=== PATIENT | female | born 1970 | race American Indian/Alaskan Native ===

== ENCOUNTER 2017-11-04 21:21 | Inpatient (IN) | payer OTHER, SELFPAY ==
[2017-11-04 21:35] VITALS: BP 128/61; PULSE 113; RESP 22; TEMP 37.7; O2SAT 95; BMI 25.2
--- NOTE | 2017-11-04 21:41 | PC.NURSE ---
ADMISSION Received pt at approximately 2109 via ambulance transfer from [facility]. Per report from [facility] RN, pt with MRSA to L knee and had I&D done prior to transfer, which yielded about 20ml of purulent drainage. L knee with gauze wrap dressing intact, moderate amount of serosangiunous drainage noted, per ambulance report, looped nargis drain underneath dressing although has not been visualized. 3+ edema and redness noted to L knee area. pt able to transfer from stretcher to bed with minimal assist. denies pain at rest, states pain only when walking. Dr. Dee notified pt on unit. Pt oriented to room, call light within reach.
[2017-11-04] MEDS: DEXTROSE 5%-0.45% NS 1,000 ML 100 ML IV (22:51)
--- NOTE | 2017-11-04 23:01 | PM.HP.1 ---
History of Present Illness Date Patient Seen: 11/04/17 Chief complaint: LLE ABSCESS Narrative: Patient fell about one week ago. Two days ago she developed a scratch on the anterior knee. She reports over the last two days her knee became very swollen, painful, firm, warm, and tender. She had no fever but reported chills. She was evaluated at the [facility] ED where she underwent and I/D of the knee and started Vancomycin for cellulitis. As they did not have any inpatient beds she was transferred to [facility] for admission. Patient History Medical History Breast lump in female (Acute) Eye abnormalities (Acute) Hepatic cirrhosis (Acute) Hepatitis C (Acute) History of alcohol abuse (Acute) Smoker (Acute) Surgical History History of tubal ligation (Acute) Family & Social History Family History: Reviewed 11/04/17 by Brittani Dee MD Social History: household members none Prior Living Arrangements RV Safety & Behavioral: Feels Safe in Current Yes Environment Been Physically Hurt or No Threatened By a Person Suicidal Ideation Description None Tobacco & Substance use: Tobacco type cigarettes Smoking Status Current every day smoker alcohol intake current alcohol intake frequency a few times a week Substance Use Type marijuana Meds Home Medications Medication Instructions Recorded Confirmed Type Multi-Vitamins with Iron 1 tab PO DAILY 11/04/17 11/04/17 History Vitamin D3 1 tab PO DAILY 11/04/17 11/04/17 History jaquhhk-bbcgsiuipgkhv-jsvseutj 2 tab PO Q6H PRN 11/04/17 11/04/17 History [Excedrin Extra Strength] Allergies Allergy/AdvReac Type Severity Reaction Status Date / Time oxycodone Allergy Rash Verified 11/04/17 22:51 Review of Systems Review of Systems All systems reviewed & are unremarkable except as noted in HPI and below Exam Narrative Exam Narrative: HEENT: NC/ AT, EOMI, Oropharyx clear Neck supple Lungs: clear to auscultation CV: RRR nl S1S2 ABd: soft/ nontender non distendend EXT: Left Leg: knee oozing with serosanguinous fluid Left Leg swollen, warm, red, and firm from ankle to upper inner thigh Neuro: non focal Objective Labs Result Diagrams: 09/12/18 22:50 Labs: WBC 25.7 h?h 15.3/44/4 Na- 133 Pot 3.8 chloride 95, CO2 26 BUn11 Creat 0.8 Lactic Acid 1.2 Assessment & Plan (1) Sepsis affecting skin: Problem details: Patient will continue IV hydration and antibiotics. Her initial lactate was 1.2 will repeat Current visit: Yes Status: Acute (2) Cellulitis: Problem details: Will start Ceftriaxone and Vancomycin pending the results of culture Current visit: Yes Status: Acute (3) Abscess: Problem details: will follow, she may need surgical consultation given the extent of the abscess and cellulitis Current visit: Yes Status: Acute (4) Hepatitis C: Problem details: chronic Current visit: Yes Status: Acute Quality VTE Deep Vein Thrombosis/Pulmonary Embolism Present on Admission: No
[2017-11-04 23:11] LABS: BUN Creatinine Ratio 16.7 (6-22); Blood Urea Nitrogen 10 mg/dL (7-17); Estimated Glomerular Filt Rate > 60.0 mL/min (>60); Lactate (Lactic Acid) 0.8 mmol/L (0.7-2.1)
[2017-11-05] VITALS (9 sets, daily range): BP systolic 90–153; BP diastolic 56–68; PULSE 71–102; RESP 16–19; TEMP 36.2–37.4; O2SAT 97–100
--- NOTE | 2017-11-05 | DI.MRI.S_ITS ---
PROCEDURE: MR KNEE LT WO/W CON INDICATIONS: Left knee pain, swelling, abcess TECHNIQUE: Noncontrast sagittal PD fast spin echo and T2 fast spin echo with fat saturation, sagittal 3-D FLASH with fat saturation; coronal T1 spin echo and PD fast spin echo with fat saturation, and axial T1 spin echo and PD fast spin echo with fat saturation through the knee. Post-contrast axial, coronal, and sagittal T1 spin echo with fat saturation through the knee. COMPARISON: None. FINDINGS: Image quality: There are motion artifacts. Bones: No fracture or dislocation. There is marrow edema in patella, likely secondary to bone contusion. Bone contusion is also noted in the lateral tibial plateau. Soft tissue: Anterior soft tissue edema, skin thickening and increased enhancement are consistent with cellulitis. There is an open wound with a surgical drain superficial to patella. In the infrapatellar area, there is a fluid collection 1.4 cm AP, 4.5 cm transverse and 5.6 cm longitudinal, which demonstrates subtle peripheral enhancement suspicious for an abscess. Menisci: There is complex tear of the lateral medial meniscus. A horizontal tear is present in the posterior horn the medial meniscus. Cruciate ligaments: The anterior and posterior cruciate ligaments are suboptimally visualized but appear intact. Medial structures: The medial collateral ligament appears intact. No abnormal bursal fluid. Lateral structures: The lateral collateral ligament, the biceps femoris tendon and the iliotibial band appear intact. The popliteus tendon appears normal. Anterior structures: The quadriceps and patellar tendons appear intact. Patellar alignment is normal. No femoral trochlear dysplasia or ventral trochlear prominence. No edema in the infrapatellar fat pad. Joint space: There is small knee joint fluid. No Trevino's cyst. Moderate tricompartmental degenerative joint disease is present with articular cartilage thinning and fibrillation, most pronounced in the medial femorotibial compartment. Suspect small intra-articular bodies posterior to the knee. IMPRESSION: 1. Open wound in anterior soft tissue superficial to patella with a surgical drain. A 1.4 x 4.5 x 5.6 cm fluid collection demonstrates peripheral enhancement in the infrapatellar region consistent with abscess. The abscess is inferior to the surgical drain. 2. There is skin thickening, soft tissue edema and abnormal enhancement consistent with cellulitis. 3. Complex tear of the lateral meniscus. 4. Horizontal tear of the posterior horn of the medial meniscus. 5. Moderate tricompartmental degenerative joint disease. Small intra-articular bodies are noted in posterior knee joint. 5. There is mild bone contusion in patella and the lateral tibial plateau. No displaced fractures. 6. Small knee joint effusion. The result was discussed with Dr. Wallis on 11/05/2017 at 1703 hrs. Dictated by: Becky Turner M.D. on 11/05/2017 at 17:30 Transcribed by: KAYLAN on 11/05/2017 at 19:05 Approved by: Becky Turner M.D. on 11/06/2017 at 9:58
[2017-11-05] MEDS: CEFTRIAXONE 2 GM/50 ML FROZ.PIGGY IV ×2 (00:02→21:37)
[2017-11-05] MEDS: HYDROCODONE/ACET 5/325 TABLET 1 TAB PO ×3 (00:06→14:25)
[2017-11-05] MEDS: VANCOMYCIN 1,000 MG/200 ML FROZ.PIGGY 125 MG IV (00:46)
--- NOTE | 2017-11-05 03:22 | PC.NURSE ---
Addendum entered by Mandy Hager R.N. 11/05/17 05:48: Up to bathroom earlier with 1 assist and holding onto IV pole due to weakness in left leg. Denied further pain at that time. BP remains low at 90/42; will continue to monitor. Is now afebrile and HR down to 92 bpm. Patient currently asleep. Original Note: Patient is alert and oriented. Voice is coarse and speech is garbled and difficult to understand at times. Breath sounds diminished but CTA with RA sat of 97%. HRR but tachy at 102 and BP low at 94/63. Denies nausea. BT present and abdomen is soft. Denies dysuria, frequency, urgency or incontinence. Up to bathroom with 1 assist and holds onto IV pole as is weaker in left leg. Left leg is red, warm and swollen from upper thigh to ankle. Knee dressing is intact with serosanguinous drainage noted. Is on contact isolation for potential MRSA infection. Independent with bed mobility. Earlier received Vicodin for complaint of leg pain and now states she is having no pain. Fall risk is high as had recent fall; bed alarm is activated.
[2017-11-05 06:23] LABS: Add Manual Diff / Slide Review NO; Basophils Percent Auto 0.4 % (0-2); Eosinophils Percent Auto 0.6 % (2-4); Hematocrit 35.7 % (36-46); Hemoglobin 11.9 g/dL (12.0-16.0); Lymphocytes Percent Auto 12.3 % (25-40); Mean Corpuscular HGB Conc 33.4 % (30-36); Mean Corpuscular Hemoglobin 29.5 PG (26-34); Mean Corpuscular Volume 88.3 fL (80-100); Monocytes Percent Auto 12.4 % (3-14); Neutrophils Absolute Auto 12400 /uL (3000-5900); Neutrophils Percent Auto 74.3 % (50-75); Platelet Count 221 X10^3/uL (150-400); Red Blood Cell Count 4.04 X10^6/uL (4.0-5.2); Red Cell Distribution Width 14.4 % (11.6-14.8); White Blood Cell Count 16.7 X10^3/uL (4.5-11.0)
[2017-11-05 06:32] LABS: Alanine Aminotransferase 17 IU/L (9-52); Albumin 3.2 g/dL (3.5-5.0); Alkaline Phosphatase 83 U/L (38-126); Aspartate Aminotransferase 16 IU/L (14-36); BUN Creatinine Ratio 16.7 (6-22); Bilirubin Total 0.8 mg/dL (0.2-1.3); Blood Urea Nitrogen 10 mg/dL (7-17); Calcium 8.3 mg/dL (8.4-10.2); Carbon Dioxide 29 mmol/L (22-32); Chloride 105 mmol/L (98-107); Estimated Glomerular Filt Rate > 60.0 mL/min (>60); Globulin 3.3 g/dL (1.7-4.1); Glucose 112 mg/dL (70-100); HEMOLYSIS < 15 (0-50); Potassium 3.7 mmol/L (3.4-5.1); Sodium 139 mmol/L (137-145); Total Protein 6.5 g/dL (6.3-8.2)
[2017-11-05] MEDS: DOCUSATE 100 MG CAPSULE PO ×2 (09:26→21:37)
[2017-11-05] MEDS: ENOXAPARIN 40 MG/0.4 ML SYRINGE SUBCUT (09:26)
[2017-11-05] MEDS: VANCOMYCIN 1,250 MG in SODIUM CHLORIDE 0.9% 250 ML IV ×2 (10:30→17:05)
[2017-11-05] MEDS: DEXTROSE 5%-0.45% NS 1,000 ML 100 ML IV (10:30)
--- NOTE | 2017-11-05 12:34 | PC.NURSE ---
Addendum entered by Ashley Craig R.N. 11/05/17 15:47: Pt tearful in early afternoon, pt's mother in to visit, pt teary, ambulated in halls following her mother to the elevator, stating she wanted to go home per TAPPER HELPER report. Unwitnessed by life insurance underwriter. Pt able to be re-directed back to her room, settled into chair at bedside. Arcade Games Mechanic spoke with Dr. Dee at 1330 re plan of care. Left knee dressing taken down at 1330, Dr. Dee in room to observe. left knee incisions X2 cleansed with NS where nargis drain intact. Incisions oozing sero-sang fluid. Surrounding area edematous, red, warm. Covered with wet 4X4 gauze and abd pad X2, secured with kerlix. Wet to dry dressing verbal order by Dr. Dee, pt tolerated fair-well. At 1430, pt NPO, ativan 1mg given for anxiety. Dr. Damian consulted by Dr. Dee. Awaiting left knee MRI time frame today, screening form done. Original Note: Day Shift-Pt's mother Lisha visiting pt in room at 1230, contact isolation precautions explained, compliant with wearing gowns, gloves, hand hygiene. Pt reported 6-7/10 LLE aching, [place] 1 tab prn given at 0925, upon reassessment, pt asleep. IVF infusing well to left AC PIV. Vanco infusion held this AM awaiting vanco trough. Spoke with lab at 1005, confirming lab draw for vanco through, none ordered for today, therefore spoke with pharmacy at 1010, no trough as ordered on APR for today, this will be done tomorrow 11/06. Vanco then infused per APR. LLE red, warm, edematous. Area previously marked with black marker. LLE knee dressing has serous fluid drainage. Awaiting Dr. Dee's assessment to take down dressing and change. Pt aware.
--- NOTE | 2017-11-05 13:49 | PM.PN.1 ---
Subjective Date Patient Seen: 11/05/17 Interval history: Patient is tearful and wants to go out to smoke. Her pain control appears adequate Her left leg is slightly improved with less warmth, firmness, and redness Exam Vital Signs (past 8 hours): - 11/05/17 07:20 11/05/17 09:20 11/05/17 12:00 Temperature 98.7 F 98.1 F Pulse Rate 84 71 Respiratory Rate 17 16 Blood Pressure 107/56 L 124/63 Pulse Oximetry 99 98 100 Oxygen Delivery Method Room Air Oxygen Flow Rate 0 Narrative Exam Narrative: tearful Lungs: clear to auscultation CV: RRR nl Sl S2 Abd: soft/ non tender Ext: Left knee with drains in place, red, tender, firm Cellulitis extending from inner thigh to ankle, improved since last night left leg with 2-3+ edema Objective Labs Result Diagrams: 11/05/17 06:00 11/05/17 06:00 Labs: Laboratory Results - last 24 hr 11/04/17 11/04/17 11/05/17 22:50 22:50 06:00 WBC 16.7 H RBC 4.04 Hgb 11.9 L Hct 35.7 L MCV 88.3 MCH 29.5 MCHC 33.4 RDW 14.4 Plt Count 221 Neut % (Auto) 74.3 Lymph % (Auto) 12.3 L [place] % (Auto) 12.4 Eos % (Auto) 0.6 L Baso % (Auto) 0.4 Neut # (Auto) 61301 H Sodium Potassium Chloride Carbon Dioxide BUN 10 Creatinine 0.60 Estimated GFR > 60.0 BUN/Creatinine Ratio 16.7 Glucose Lactate 0.8 Calcium Total Bilirubin AST ALT Alkaline Phosphatase Total Protein Albumin Globulin Albumin/Globulin Ratio 11/05/17 06:00 WBC RBC Hgb Hct MCV MCH MCHC RDW Plt Count Neut % (Auto) Lymph % (Auto) [place] % (Auto) Eos % (Auto) Baso % (Auto) Neut # (Auto) Sodium 139 Potassium 3.7 Chloride 105 Carbon Dioxide 29 BUN 10 Creatinine 0.60 Estimated GFR > 60.0 BUN/Creatinine Ratio 16.7 Glucose 112 H Lactate Calcium 8.3 L Total Bilirubin 0.8 AST 16 ALT 17 Alkaline Phosphatase 83 Total Protein 6.5 Albumin 3.2 L Globulin 3.3 Albumin/Globulin Ratio 1.0 Assessment & Plan (1) Sepsis affecting skin: Problem details: Continue Ceftriaxone and Vancomycin Awaiting culture results Current visit: Yes Status: Acute (2) Cellulitis: Problem details: Will start Ceftriaxone and Vancomycin pending the results of culture Current visit: Yes Status: Acute (3) Abscess: Problem details: will follow, The wound is very concerning, Ortho consultation to determine if definitive surgical debridement indicated MRI to evaluate further Current visit: Yes Status: Acute (4) Hepatitis C: Problem details: chronic Current visit: Yes Status: Acute (5) Nicotine dependence with withdrawal: Problem details: She is tearful but refuses nicotine patch. She wants to go outside to smoke Will give her Ativan prn Current visit: Yes Status: Acute Plan: Assessment/Plan Narrative: NPO, MRI of Left Knee Quality VTE Deep Vein Thrombosis/Pulmonary Embolism Present on Admission: No
[2017-11-05] MEDS: LORazepam 2 MG/ML SYRINGE 1 MG IV ×2 (14:25→15:53)
--- NOTE | 2017-11-05 14:47 | CM.IDA ---
Addendum entered by HAIM Hendrix 11/06/17 15:29: To OR for I+D at 1450, see nursing notes; Pt continues to be emotionally labile and anxious, ativan seems to assist, per notes. Will attempt deeper conversation tomorrow if pt remains here. Original Note: DCP Assessment Note: Pt is a 47 yo female, resident of [place]. Pt is admitted for LLE abscess, cellulitis, and sepsis. PCP unknown. Insurance is Medicaid. Attempted assessment w/pt this morning at bedside, she said her phone was about to , she didn't have a manager pharmacy, and she wanted to finish texting her family. Attempted again this afternoon, spoke w/KAUSHIK Rea before entering room. Fouzia explained that pt was very tearful and anxious this afternoon, asking to leave to smoke, ativan had been ordered to assist. Fouzia states there is h/o drug use. Pt was visited by her mom today and this visit did not go well. MRI ordered and possible I+D. Pt remains anxious and teary right now, will hold DCP assessment at this time but following very closely. HAIM Hendrix Discharge Planning/Care Management CM Discharge Assessment Start: 11/05/17 14:43 Freq: Status: Active Protocol: Document 11/05/17 14:43 KIM (Rec: 11/05/17 14:47 KIM [id number]) Discharge Planning Assessment Assigned Treasury Analyst HAIM Santiago DPOA/Assigned Designee Name Sangeeta Mckeon mother Contact Information [phone], cell Advance Directives? No History Provided By Medical Record Prior Living Arrangements RV Household Members none Type of transporation used prior to Drives own vehicle admit Independent with ADL's Yes Is patient alert and oriented? Yes Comment Unknown until further assessment and clarification of POC Discharge Plan Home Transportation Arrangement Unknown at this time Additional Comment Pending POC/DCP options Whiteboard Updated in Patient Room with Yes name and ext. # of Treasury Analyst Review Status In Process
[2017-11-05] MEDS: NICOTINE 21 MG PATCH TOP (15:53)
[2017-11-05] MEDS: HYDROCODONE/ACET 5/325 TABLET 2 TAB PO (21:37)
[2017-11-06] VITALS (18 sets, daily range): BP systolic 93–134; BP diastolic 48–88; PULSE 77–96; RESP 16–25; TEMP 36.2–37.4; O2SAT 93–99; BMI 25.4
--- NOTE | 2017-11-06 00:02 | PC.NURSE ---
SHIFT NOTE Pt completed LLE MRI this shift. while pt off unit, received call from Dr. Damian stating pt will most likely have wash out done tomorrow at 1430 and pt to be NPO at midnoc tonight. pt updated when returing to unit after MRI and verbalized understanding. pt states pain to LLE rated 6/10 and states 1 tab norco ineffective, received order to increased to 2 tabs Q4H which pt verbally agreeable to. L knee dressing CDI, per previous shift RN, nargis drain intact underneath dressing. pt able to ambulate with 1P min assist. contact precautions maintained. bed alarm for safety. call light within reach.
[2017-11-06] MEDS: VANCOMYCIN 1,250 MG in SODIUM CHLORIDE 0.9% 250 ML IV ×3 (00:09→18:21)
[2017-11-06] MEDS: HYDROMORPHONE 1 MG INJ IV ×2 (00:14→08:29)
--- NOTE | 2017-11-06 00:28 | PC.NURSE ---
Addendum entered by Mandy Hager R.N. 11/06/17 06:48: Becoming increasingly agitated as not wanting to adhere to hospital policy that an alarm be used since she is a high fall risk. States other staff have not made her use the alarm and she is not going to stay. Now claims she didn't fall although has stated prior that she had fall in past 2 weeks. child care coordinator, Talisha, informed who will talk with patient. Currently ambulating in [place] with staff assist. Original Note: Patient is alert and oriented although speech is somewhat garbled sounding making it sometimes difficult to understand. Breath sounds diminished but CTA with RA sat of 98%. HRR. Denies nausea. BT present and abdomen is soft. Denies dysuria, frequency, urgency or incontinence. Independent with bed mobility. Left LE remains swollen, red and warm with redness extending further up thigh past previously drawn markings. Dressing around knee is CDI. Complains of 7/10 pain so medicated with IV Dilaudid as is currently NPO for procedure later today. Is assisted to bathroom with 1 person and holds onto IV pole due to weakness in left LE. Fall risk score is high and bed alarm activated.
[2017-11-06] MEDS: DEXTROSE 5%-0.45% NS 1,000 ML 100 ML IV ×2 (02:09→14:01)
[2017-11-06 06:45] LABS: Hematocrit 34.9 % (36-46); Hemoglobin 11.6 g/dL (12.0-16.0); Mean Corpuscular HGB Conc 33.3 % (30-36); Mean Corpuscular Hemoglobin 29.6 PG (26-34); Mean Corpuscular Volume 88.8 fL (80-100); Platelet Count 236 X10^3/uL (150-400); Red Blood Cell Count 3.93 X10^6/uL (4.0-5.2); Red Cell Distribution Width 14.1 % (11.6-14.8); White Blood Cell Count 9.9 X10^3/uL (4.5-11.0)
[2017-11-06 07:51] LABS: Neutrophils Absolute Manual 7029 /uL (3000-5900); RBC Morphology Normal Morphology; Total Cells Counted 100
[2017-11-06] MEDS: NICOTINE 21 MG PATCH TOP (08:28)
[2017-11-06 08:29] LABS: Vancomycin Trough 11.6 ug/mL (10-20)
--- NOTE | 2017-11-06 10:58 | PC.NURSE ---
Addendum entered by Ashley Craig R.N. 11/06/17 15:04: Pt to OR at 1450 via bed, unwitnessed by music writer. Original Note: Addendum entered by Ashley Craig R.N. 11/06/17 12:20: Pt out of BR, washed hair, settled into chair at bedside. Pt anxious, requested prn med. Ativan was going to be given and while in pt's room, music writer was putting chair alarm on pt and explained that this was being done. Pt moved her arm away, stated no we're not doing that. Pt became very teary, emotional stating she was going to call her mom to pick her up and needing to get out of here. Balance Wheel Screw Hole Tapper explained the need for chair/bed alarms for hospital policy for high risk pt's. Pt states she's always been indep and doesn't want to be tied down like a dog on a leash. Explained risks of future falls, injury, longer hospital stay. Pt continued to refuse. At 1210, manager shift aware and community relations representative aware of high fall risk alarm. Pt agreed to keep room door open at all times, wants to ambulate around room and music writer observed pt to do so with IV pole. Conclusion, pt refused chair and bed alarm. Original Note: Day Shift- Pt expresses opinion on the need for high risk fall precautions using the bed alarm. Stating one fall in 10 years makes me a fall risk, I ride my bike everywhere. Balance Wheel Screw Hole Tapper explained the need for bed alarm precautions and bed alarm on. Thus far compliant. Pt's other complaint is hunger and thirst, states being NPO for too long, possible surgery at [address] Damian. Explained the risk of aspiration and delayed surgery if pt eats/drinks. Dilaudid IV prn given at 0830 for 7/10 pain to left knee. Upon reassessment, not much change. Vanco trough drawn later in morning for pt. Called pharmacy at 0945 as vanco med not available on unit, pharmacy stated they will tube to unit. Left knee dressing CDI. IVF infusing well to left AC PIV. Call light within reach.
[2017-11-06] MEDS: LORazepam 2 MG/ML SYRINGE 1 MG IV ×2 (11:59→22:24)
[2017-11-06] MEDS: LACTATED RINGERS 1,000 ML 42 ML IV (15:08)
--- NOTE | 2017-11-06 15:34 | P.PN_ITS ---
Subjective Date Patient Seen: 11/06/17 Interval history: Patient reports she continues to have significant pain. Her left leg is still swollen but has less redness and warmth. Patient is scheduled for I/D in the OR today Exam Vital Signs (past 8 hours): - 11/06/17 08:00 11/06/17 08:30 11/06/17 12:23 Temperature 97.4 F L 98.3 F Pulse Rate 93 H 89 Respiratory Rate 18 18 Blood Pressure 99/48 L 112/78 Pulse Oximetry 93 94 99 11/06/17 15:09 Temperature 99.3 F Pulse Rate 89 Respiratory Rate 16 Blood Pressure 108/69 Pulse Oximetry 98 Oxygen Delivery Method Room Air Oxygen Flow Rate 0 Narrative Exam Narrative: Lungs: Clear to auscultation CV: RRR nl Sl S2 Abd: Soft/ non tender non distended Ext: Left Leg with erythema involving thigh down to ankle Left leg is swollen, tender 2 nargis drains placed in Knee Dressing is dry Objective Labs Result Diagrams: 11/06/17 06:26 11/05/17 06:00 Labs: Laboratory Results - last 24 hr MRI- Abcess involving the anterior patella, fluid, drains in place Cultures from [facility] growing gram positive cocci in clusters 11/06/17 11/06/17 06:26 07:45 WBC 9.9 RBC 3.93 L Hgb 11.6 L Hct 34.9 L MCV 88.8 MCH 29.6 MCHC 33.3 RDW 14.1 Plt Count 236 Total Counted 100 Seg Neutrophils % 71.0 H Lymphocytes % (Manual) 17.0 L Atypical Lymphs % 2.0 H Monocytes % (Manual) 10.0 Neutrophils # (Manual) 7029 H RBC Morphology Normal morphology Vancomycin Trough 11.6 Assessment & Plan (1) Nicotine dependence with withdrawal: Problem details: She is tearful but refuses nicotine patch. She wants to go outside to smoke Will give her Ativan prn Patient agreed to Nicotine patch Current visit: Yes Status: Acute (2) Hepatitis C: Problem details: chronic Current visit: Yes Status: Acute (3) Abscess: Problem details: will follow, The wound is very concerning, Ortho consultation to determine if definitive surgical debridement indicated MRI to evaluate further patient to have definitive extensive debridement in the OR today Current visit: Yes Status: Acute (4) Cellulitis: Problem details: Will start Ceftriaxone and Vancomycin pending the results of culture Cultures growing gram positive cocci. Will check with Jonel Perez again for Culture and Sensitivity results Current visit: Yes Status: Acute (5) Sepsis affecting skin: Problem details: Continue Ceftriaxone and Vancomycin Awaiting culture results Current visit: Yes Status: Acute Quality VTE Deep Vein Thrombosis/Pulmonary Embolism Present on Admission: No
--- NOTE | 2017-11-06 15:38 | PM.CN ---
History of Present Illness Date Patient Seen: 11/05/17 Time Patient Seen: 17:39 Chief complaint: LLE ABSCESS Reason for consult: left leg infection Requesting provider: Gabriella Giron Narrative: Ms. Frances is a 47 yo F with history of a cut on her left anterior knee approximately 10 days ago. The wound closed up. Over the last 2 days patient has been having increased swelling pain and redness to her left knee and the entire leg. Patient was seen by [facility] emergency room physician. Patient underwent a incision and drainage in the emergency room and then was transferred to [facility] for definitive care. Patient was seen and examined MRI was ordered. Patient was found have a large abscess in the soft tissue of her left leg. Patient was scheduled for incision and drainage irrigation debridement of her left leg. [facility] Medical History Breast lump in female (Acute) Eye abnormalities (Acute) Hepatic cirrhosis (Acute) Hepatitis C (Acute) History of alcohol abuse (Acute) Smoker (Acute) Surgical History History of tubal ligation (Acute) Social History household members: none Smoking Status: Current every day smoker alcohol intake: current Meds Home Medications Medication Instructions Recorded Confirmed Type Multi-Vitamins with Iron 1 tab PO DAILY 11/04/17 11/04/17 History Vitamin D3 1 tab PO DAILY 11/04/17 11/04/17 History rcdfroc-meuwrnmrvrdku-ikyvjyfo 2 tab PO Q6H PRN 11/04/17 11/04/17 History [Excedrin Extra Strength] Allergies Allergy/AdvReac Type Severity Reaction Status Date / Time oxycodone Allergy Rash Verified 11/04/17 22:51 Review of Systems Review of Systems All systems reviewed & are unremarkable except as noted in HPI and below Exam Vital Signs (past 8 hours): - 11/06/17 08:00 11/06/17 08:30 11/06/17 12:23 Temperature 97.4 F L 98.3 F Pulse Rate 93 H 89 Respiratory Rate 18 18 Blood Pressure 99/48 L 112/78 Pulse Oximetry 93 94 99 11/06/17 15:09 Temperature 99.3 F Pulse Rate 89 Respiratory Rate 16 Blood Pressure 108/69 Pulse Oximetry 98 Oxygen Delivery Method Room Air Oxygen Flow Rate 0 Objective Labs Result Diagrams: 11/06/17 06:26 11/05/17 06:00 Labs: Laboratory Results - last 24 hr 11/06/17 11/06/17 06:26 07:45 WBC 9.9 RBC 3.93 L Hgb 11.6 L Hct 34.9 L MCV 88.8 MCH 29.6 MCHC 33.3 RDW 14.1 Plt Count 236 Total Counted 100 Seg Neutrophils % 71.0 H Lymphocytes % (Manual) 17.0 L Atypical Lymphs % 2.0 H Monocytes % (Manual) 10.0 Neutrophils # (Manual) 7029 H RBC Morphology Normal morphology Vancomycin Trough 11.6 Assessment & Plan Plan: Assessment/Plan Narrative: 47 yo F with left leg infection from a laceration with MRI showing large abscess in the soft tissue. After discussing risks and benefits of treatment options, patient will be scheduled for left knee I&D urgently.
--- NOTE | 2017-11-06 15:41 | P.CONS_ITS ---
History of Present Illness Date Patient Seen: 11/05/17 Time Patient Seen: 17:39 Chief complaint: LLE ABSCESS Reason for consult: left leg infection Requesting provider: Gabriella Giron Narrative: Ms. Frances is a 47 yo F with history of a cut on her left anterior knee approximately 10 days ago. The wound closed up. Over the last 2 days patient has been having increased swelling pain and redness to her left knee and the entire leg. Patient was seen by [facility] emergency room physician. Patient underwent a incision and drainage in the emergency room and then was transferred to [facility] for definitive care. Patient was seen and examined MRI was ordered. Patient was found have a large abscess in the soft tissue of her left leg. Patient was scheduled for incision and drainage irrigation debridement of her left leg. [facility]LY [facility] Medical History Breast lump in female (Acute) Eye abnormalities (Acute) Hepatic cirrhosis (Acute) Hepatitis C (Acute) History of alcohol abuse (Acute) Smoker (Acute) Surgical History History of tubal ligation (Acute) Social History household members: none Smoking Status: Current every day smoker alcohol intake: current Meds Home Medications Medication Instructions Recorded Confirmed Type Multi-Vitamins with Iron 1 tab PO DAILY 11/04/17 11/04/17 History Vitamin D3 1 tab PO DAILY 11/04/17 11/04/17 History khuiozy-eakemhvwelnlj-hnsmozny 2 tab PO Q6H PRN 11/04/17 11/04/17 History [Excedrin Extra Strength] Allergies Allergy/AdvReac Type Severity Reaction Status Date / Time oxycodone Allergy Rash Verified 11/04/17 22:51 Review of Systems Review of Systems All systems reviewed & are unremarkable except as noted in HPI and below Exam Vital Signs (past 8 hours): - 11/06/17 08:00 11/06/17 08:30 11/06/17 12:23 Temperature 97.4 F L 98.3 F Pulse Rate 93 H 89 Respiratory Rate 18 18 Blood Pressure 99/48 L 112/78 Pulse Oximetry 93 94 99 11/06/17 15:09 Temperature 99.3 F Pulse Rate 89 Respiratory Rate 16 Blood Pressure 108/69 Pulse Oximetry 98 Oxygen Delivery Method Room Air Oxygen Flow Rate 0 Objective Labs Result Diagrams: 11/06/17 06:26 11/05/17 06:00 Labs: Laboratory Results - last 24 hr 11/06/17 11/06/17 06:26 07:45 WBC 9.9 RBC 3.93 L Hgb 11.6 L Hct 34.9 L MCV 88.8 MCH 29.6 MCHC 33.3 RDW 14.1 Plt Count 236 Total Counted 100 Seg Neutrophils % 71.0 H Lymphocytes % (Manual) 17.0 L Atypical Lymphs % 2.0 H Monocytes % (Manual) 10.0 Neutrophils # (Manual) 7029 H RBC Morphology Normal morphology Vancomycin Trough 11.6 Assessment & Plan Plan: Assessment/Plan Narrative: 47 yo F with left leg infection from a laceration with MRI showing large abscess in the soft tissue. After discussing risks and benefits of treatment options, patient will be scheduled for left knee I&D urgently.
--- NOTE | 2017-11-06 15:48 | PM.PREOP ---
Pre-operative Note Interval Note Pre-op Check: Yes History & Physical Reviewed by Physician, Yes Exam Performed and Yes History & Physical exam performed today by Physician Changes: No
[2017-11-06] MEDS: METOCLOPRAMIDE 10 MG/2 ML INJ IV (16:00)
[2017-11-06] MEDS: FAMOTIDINE 20 MG/50 ML PIGGYBACK 200 MG IV (16:00)
--- NOTE | 2017-11-06 16:15 | PM.OP.1 ---
Operative Date/Time/Diagnoses Date of procedure: 11/06/17 Time of procedure: 16:15 Pre-op diagnosis: left leg infection with abscess in the soft tissue Post-op diagnosis: same Procedure & Clinicians Procedure: 1. Left leg Incision and drainage 2. Left leg irrigation and debridement of skin, muscle and fascia Same procedure as scheduled: Yes Indications: Ms. Frances is a 47 yo F with 3 day hx of increased left leg swelling, pain and redness with hx of laceration to the leg 1 week ago. MRI shows large abscess in the left leg soft tissue. After discussing risks and benefits of surgery, I scheduled her for urgent I&D of her left leg. Surgeon: Brandyn Damian Click Yes if Unassisted: Yes Anesthesia Type: General Operative Notes Estimated Blood Loss (mL): 50 Blood products transfused: none Procedure in detail: After patient was consented of risks and benefits of treatment options, informed consent was obtained and placed in the chart. Patient was placed into a supine position on a radiolucent table. General anesthesia was administered. Time-out was performed at this time. A tourniquet was placed on patient's left upper thigh. Patient's left leg was then prepped and draped in the sterile fashion. Patient's left leg was then elevated for 1 min and tourniquet was inflated to 250 mm Hg. A anterior incision was made on the left left leg called to the patella after making incision Metzenbaum scissor was used to dissect down to the level of the muscle fascia. 100 cc of purulent material was expressed from the wound. The wound was then debrided using Leksell rongeur to remove unhealthy appearing muscles fascia and subcutaneous tissue. The infection was found to be extra-articular. After debridement was completed the wound was irrigated with copious amount of sterile saline total 3 L with gentamicin. The wound was then inspected and was healthy appearing and well perfused. A ALEM drain was placed in the wound and incision was closed using nylon sutures. The wound was closed with 2-0 nylon suture. A sterile dressing was applied to the wound. Patient was transferred to recovery room in stable condition. Complications: none Condition: stable Disposition: Acute Care
--- NOTE | 2017-11-06 16:22 | P.OP_ITS ---
Operative Date/Time/Diagnoses Date of procedure: 11/06/17 Time of procedure: 16:15 Pre-op diagnosis: left leg infection with abscess in the soft tissue Post-op diagnosis: same Procedure & Clinicians Procedure: 1. Left leg Incision and drainage 2. Left leg irrigation and debridement of skin, muscle and fascia Same procedure as scheduled: Yes Indications: Ms. Frances is a 47 yo F with 3 day hx of increased left leg swelling , pain and redness with hx of laceration to the leg 1 week ago. MRI shows large abscess in the left leg soft tissue. After discussing risks and benefits of surgery, I scheduled her for urgent I&D of her left leg. Surgeon: Brandyn Damian Click Yes if Unassisted: Yes Anesthesia Type: General Operative Notes Estimated Blood Loss (mL): 50 Blood products transfused: none Procedure in detail: After patient was consented of risks and benefits of treatment options, informed consent was obtained and placed in the chart. Patient was placed into a supine position on a radiolucent table. General anesthesia was administered. Time-out was performed at this time. A tourniquet was placed on patient's left upper thigh. Patient's left leg was then prepped and draped in the sterile fashion. Patient's left leg was then elevated for 1 min and tourniquet was inflated to 250 mm Hg. A anterior incision was made on the left left leg called to the patella after making incision Metzenbaum scissor was used to dissect down to the level of the muscle fascia. 100 cc of purulent material was expressed from the wound. The wound was then debrided using Leksell rongeur to remove unhealthy appearing muscles fascia and subcutaneous tissue. The infection was found to be extra- articular. After debridement was completed the wound was irrigated with copious amount of sterile saline total 3 L with gentamicin. The wound was then inspected and was healthy appearing and well perfused. A ALEM drain was placed in the wound and incision was closed using nylon sutures. The wound was closed with 2-0 nylon suture. A sterile dressing was applied to the wound. Patient was transferred to recovery room in stable condition. Complications: none Condition: stable Disposition: Acute Care
--- NOTE | 2017-11-06 16:43 | SUR.OPER ---
Supine on padded OR bed, head on pillow, arms secured on padded arm boards at <90 degrees abduction, legs uncrossed, safety belt at thigh, tape over blanket over lower legs.
[2017-11-06] MEDS: HYDROMORPHONE 2 MG INJ 0.5 MG IV ×2 (17:38→17:49)
[2017-11-06] MEDS: LACTATED RINGERS 1,000 ML 125 ML IV (18:15)
[2017-11-06] MEDS: HYDROMORPHONE 0.5 MG INJ IV (22:15)
[2017-11-06] MEDS: SODIUM CHLORIDE 0.9% FLUSH 10 ML IV (22:24)
[2017-11-06] MEDS: CEFTRIAXONE 2 GM/50 ML FROZ.PIGGY IV (22:27)
--- NOTE | 2017-11-06 22:53 | PC.NURSE ---
POST-OP Received pt at approximately 1805 via bed. Pt uncomfortable and c/o severe pain to LLE incision but quickly falls asleep after complaints. cyrus wrap dressing and ALEM intact. 3+ edema to LLE persists. pt slept for the majority of the evening, but very anxious and tearful when awake, pt states due to severe pain. medicated with PRN dilaudid (PO oxycodone listed as an allergy). pt states ineffective. PRN ativan administered with pt now resting comfortably. bed aalrm for safety. call light within reach.
[2017-11-07] VITALS (8 sets, daily range): BP systolic 119–134; BP diastolic 58–84; PULSE 87–97; RESP 16–20; TEMP 36.4–37.2; O2SAT 95–97
[2017-11-07] MEDS: VANCOMYCIN 1,250 MG in SODIUM CHLORIDE 0.9% 250 ML IV ×3 (00:47→16:35)
--- NOTE | 2017-11-07 01:50 | PC.NURSE ---
Addendum entered by Amaury Curry R.N. 11/07/17 06:31: 0300: Sleeping; not disturbed. 0435: Awake, asking for medication to help her relax. Ativan 1mg given IV. 0450: Asking for medication for pain. Dilaudid 0.5mg given IV. 0515: Pt asking for more pain and sleeping medication. She was sleeping when nurse came to room. 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 Respirations unlabored. IV in place in Lt AC. Dressing to lt knee cdi, and ALEM intact and compressed. 0150: Awake briefly, asking for pain medicine. Pt sleeping when medicine brought to room.
[2017-11-07] MEDS: HYDROMORPHONE 0.5 MG INJ IV ×2 (02:19→04:47)
[2017-11-07] MEDS: LORazepam 2 MG/ML SYRINGE 1 MG IV ×3 (04:34→17:45)
[2017-11-07] MEDS: LACTATED RINGERS 1,000 ML 125 ML IV (04:50)
[2017-11-07 05:38] LABS: Hematocrit 35.1 % (36-46); Hemoglobin 11.8 g/dL (12.0-16.0); Mean Corpuscular HGB Conc 33.5 % (30-36); Mean Corpuscular Hemoglobin 29.9 PG (26-34); Mean Corpuscular Volume 89.1 fL (80-100); Platelet Count 275 X10^3/uL (150-400); Red Blood Cell Count 3.94 X10^6/uL (4.0-5.2); Red Cell Distribution Width 14.3 % (11.6-14.8); White Blood Cell Count 9.6 X10^3/uL (4.5-11.0)
[2017-11-07] MEDS: HYDROMORPHONE 1 MG INJ IV ×3 (06:53→20:26)
[2017-11-07] MEDS: HYDROCODONE/ACET 5/325 TABLET 2 TAB PO ×3 (08:57→18:30)
[2017-11-07] MEDS: CHOLECALCIFEROL (VITAMIN D3) 1,000 UNIT TABLET 1000 UNIT PO (09:00)
[2017-11-07] MEDS: MULTIVIT,CALC,MINS/IRON/FOLIC 1 TABLET 1 TAB PO (09:00)
[2017-11-07] MEDS: SODIUM CHLORIDE 0.9% FLUSH 10 ML IV (09:48)
--- NOTE | 2017-11-07 10:36 | PM.PN.1 ---
Subjective Date Patient Seen: 11/07/17 Interval history: Patient without complaints. She had I and D of left lower leg abscess in the OR yesterday. There was no intra-articular infection. Aspirin cultures from [facility] positive for MRSA but susceptible to Bactrim, tetracyclines and clindamycin. Blood and wound cultures from this hospital so far negative. Patient has been afebrile. Exam Vital Signs (past 8 hours): - 11/07/17 06:16 11/07/17 07:45 Temperature 97.6 F 98.3 F Pulse Rate 97 H 97 H Respiratory Rate 18 18 Blood Pressure 119/58 L 132/80 Pulse Oximetry 96 97 Oxygen Delivery Method Room Air Oxygen Flow Rate 0 Narrative Exam Narrative: General: No acute distress Extremities: There is left leg postop dressing and a drain with small amount of serosanguineous fluid Objective Labs Result Diagrams: 11/07/17 05:17 11/05/17 06:00 Labs: Laboratory Results - last 24 hr 11/07/17 05:17 WBC 9.6 RBC 3.94 L Hgb 11.8 L Hct 35.1 L MCV 89.1 MCH 29.9 MCHC 33.5 RDW 14.3 Plt Count 275 Assessment & Plan Plan: Assessment/Plan Narrative: 1. Left lower leg abscess due to MRSA: She is status post I and D on 11/06/2017. Afebrile. WBC was 16 K and now down to normal. The abscess cultures from [facility] show MRSA but sensitivity to several oral antibiotics. Plan: Continue IV vancomycin. Discharge on oral Bactrim once drain is removed by Ortho. She will then need outpatient ortho follow-up. 2. History of heroine IV drug use: Above infection likely related to recent fall and not IVDU. Quality VTE Deep Vein Thrombosis/Pulmonary Embolism Present on Admission: No
--- NOTE | 2017-11-07 10:41 | P.PN_ITS ---
Subjective Date Patient Seen: 11/07/17 Interval history: Patient without complaints. She had I and D of left lower leg abscess in the OR yesterday. There was no intra-articular infection. Aspirin cultures from [facility] positive for MRSA but susceptible to Bactrim, tetracyclines and clindamycin. Blood and wound cultures from this hospital so far negative. Patient has been afebrile. Exam Vital Signs (past 8 hours): - 11/07/17 06:16 11/07/17 07:45 Temperature 97.6 F 98.3 F Pulse Rate 97 H 97 H Respiratory Rate 18 18 Blood Pressure 119/58 L 132/80 Pulse Oximetry 96 97 Oxygen Delivery Method Room Air Oxygen Flow Rate 0 Narrative Exam Narrative: General: No acute distress Extremities: There is left leg postop dressing and a drain with small amount of serosanguineous fluid Objective Labs Result Diagrams: 11/07/17 05:17 11/05/17 06:00 Labs: Laboratory Results - last 24 hr 11/07/17 05:17 WBC 9.6 RBC 3.94 L Hgb 11.8 L Hct 35.1 L MCV 89.1 MCH 29.9 MCHC 33.5 RDW 14.3 Plt Count 275 Assessment & Plan Plan: Assessment/Plan Narrative: 1. Left lower leg abscess due to MRSA: She is status post I and D on 2017. Afebrile. WBC was 16 K and now down to normal. The abscess cultures from [facility] show MRSA but sensitivity to several oral antibiotics. Plan: Continue IV vancomycin. Discharge on oral Bactrim once drain is removed by Ortho. She will then need outpatient ortho follow-up. 2. History of heroine IV drug use: Above infection likely related to recent fall and not IVDU. Quality VTE Deep Vein Thrombosis/Pulmonary Embolism Present on Admission: No
--- NOTE | 2017-11-07 13:02 | CM.DPC ---
DCP Cont: Attempted again to meet w/pt, and complete a more in-depth assessment. Introduced role to pt at bedside. Pt states she is tired, she was woken up all night, and she doesn't want to talk to this GIANT TIRE REPAIRER. Pt is not agitated but clear in her wishes. Pt expects to go home w/family at DC, no expected needs. According to Dr Garcia, pt will not require IV abx so will be able to DC home w/po abx and outpt follow up. DC home, likely Thursday, w/mom or family to transport home. GIANT TIRE REPAIRER to check in before DC if needed or requested. KIM
--- NOTE | 2017-11-07 14:30 | PT.IPTN ---
Current Diagnoses Unspecified viral hepatitis C without hepatic coma (11/04/17) Nicotine dependence unspecified, with withdrawal (11/04/17) Cutaneous abscess, unspecified (11/04/17) Cellulitis of left lower limb (11/04/17) Cellulitis, unspecified (11/04/17) Surgery Performed Operation Date: 11/06/17 15:00 Actual Procedures p Incision and Drainage Wound knee(Left) - Brandyn Damian MD Physical Therapy Treatment Note M3 PT-IP Subjective Start: 11/07/17 15:07 Freq: Status: Active Protocol: Document 11/07/17 14:30 RCC (Rec: 11/07/17 15:10 RCC [id number]) Subjective Physical Therapy Visit Type Type Patient Refusal Physical Therapy Visit Comments Patient Comments pt reports she needs to rest, she has family/visitors coming in later and she is not ready for PT. She reports she has been up and OOB in the room, less pain than yesterday when she walked to the elevator. Will attempt tomorrow.
--- NOTE | 2017-11-07 17:01 | PM.DS.1 ---
History of Present Illness Chief complaint: LLE ABSCESS Narrative: Patient fell about one week ago. Two days ago she developed a scratch on the anterior knee. She reports over the last two days her knee became very swollen, painful, firm, warm, and tender. She had no fever but reported chills. She was evaluated at the [facility] ED where she underwent and I/D of the knee and started Vancomycin for cellulitis. As they did not have any inpatient beds she was transferred to [facility] for admission. Discharge Providers Date of admission: 11/04/17 21:21 Consults: 11/06/17 18:06 Consult to Discharge Planning Routine Comment: Consult to Physical Therapy Evaluate & Treat Comment: Physician Instructions: Evaluate and Treat Consult to Respiratory Therapy Evaluate & Treat Comment: Physician Instructions: Evaluate and treat Discharge provider: Tarik Garcia MD Summary Discharge Diagnosis: 1. Left lower leg abscess secondary to MRSA Parcel Post Delivery: Dr. Brandyn Damian Procedure 11/06/2017: Left leg irrigation and debridement Hospital Course: Patient admitted with left lower leg abscess cellulitis after a fall a couple of weeks ago. Started on IV vancomycin. She had incision and drainage in the OR on 11/06/2017. The operative note indicates there was no intra-articular involvement. Her aspiration wound cultures from [facility] ER grew MRSA which was sensitive to several oral antibiotics including Bactrim. Initial plan was to keep her until tomorrow but patient was very adamant on going home and seems to be withdrawing from heroin. Patient has been afebrile with stable vitals. Her drain was removed prior to discharge after okay from Orthopedic covering provider. She is instructed to follow up with Ortho in 3 days for wound check. Status at Discharge Functional status at discharge: independent ambulation Overall status at discharge: patient is back to baseline Time Spent with Patient Greater than 30 minutes Exam Vital Signs (past 8 hours): - 11/07/17 11:00 11/07/17 16:38 Temperature 98 F 97.8 F Pulse Rate 90 91 H Respiratory Rate 18 18 Blood Pressure 134/74 130/82 Pulse Oximetry 97 97 Oxygen Delivery Method Room Air Oxygen Flow Rate 0 Objective Labs Result Diagrams: 11/07/17 05:17 11/05/17 06:00 Labs: Laboratory Results - last 24 hr 11/07/17 05:17 WBC 9.6 RBC 3.94 L Hgb 11.8 L Hct 35.1 L MCV 89.1 MCH 29.9 MCHC 33.5 RDW 14.3 Plt Count 275 Discharge Plan Discharge Plan Patient Disposition: Home Discharge Med Rec/Prescriptions Prescriptions: New sulfamethoxazole-trimethoprim [Bactrim DS] 800-160 mg tablet 1 tab PO BID Qty: 20 RF: 0 Continue Multi-Vitamins with Iron 1 tab PO DAILY RF: 0 Vitamin D3 1 tab PO DAILY RF: 0 bzewatb-rbuamwjyebovg-cpeqmwjc [Excedrin Extra Strength] 250-250-65 mg Tablet 2 tab PO Q6H PRN (Reason: Pain (Scale Score 1-3)) RF: 0 Follow up/Referrals: Brandyn Damian MD [Physician] - 3-5 Days Provider Discharge Instructions Diet: Regular Discharge Data Attending Provider: Brittani Dee Admit Date/Time: 11/04/17 21:21 Quality VTE Deep Vein Thrombosis/Pulmonary Embolism Present on Admission: No
--- NOTE | 2017-11-07 17:06 | P.DS_ITS ---
History of Present Illness Chief complaint: LLE ABSCESS Narrative: Patient fell about one week ago. Two days ago she developed a scratch on the anterior knee. She reports over the last two days her knee became very swollen, painful, firm, warm, and tender. She had no fever but reported chills. She was evaluated at the [facility] ED where she underwent and I/D of the knee and started Vancomycin for cellulitis. As they did not have any inpatient beds she was transferred to [facility] for admission. Discharge Providers Date of admission: 11/04/17 21:21 Consults: 11/06/17 18:06 Consult to Discharge Planning Routine Comment: Consult to Physical Therapy Evaluate & Treat Comment: Physician Instructions: Evaluate and Treat Consult to Respiratory Therapy Evaluate & Treat Comment: Physician Instructions: Evaluate and treat Discharge provider: Tarik Garcia MD Summary Discharge Diagnosis: 1. Left lower leg abscess secondary to MRSA Geriatrics Physician: Dr. Brandyn Damian Procedure 11/06/2017: Left leg irrigation and debridement Hospital Course: Patient admitted with left lower leg abscess cellulitis after a fall a couple of weeks ago. Started on IV vancomycin. She had incision and drainage in the OR on 11/06/2017. The operative note indicates there was no intra-articular involvement. Her aspiration wound cultures from [facility] ER grew MRSA which was sensitive to several oral antibiotics including Bactrim. Initial plan was to keep her until tomorrow but patient was very adamant on going home and seems to be withdrawing from heroin. Patient has been afebrile with stable vitals. Her drain was removed prior to discharge after okay from Orthopedic covering provider. She is instructed to follow up with Ortho in 3 days for wound check. Status at Discharge Functional status at discharge: independent ambulation Overall status at discharge: patient is back to baseline Time Spent with Patient Greater than 30 minutes Exam Vital Signs (past 8 hours): - 11/07/17 11:00 11/07/17 16:38 Temperature 98 F 97.8 F Pulse Rate 90 91 H Respiratory Rate 18 18 Blood Pressure 134/74 130/82 Pulse Oximetry 97 97 Oxygen Delivery Method Room Air Oxygen Flow Rate 0 Objective Labs Result Diagrams: 11/07/17 05:17 11/05/17 06:00 Labs: Laboratory Results - last 24 hr 11/07/17 05:17 WBC 9.6 RBC 3.94 L Hgb 11.8 L Hct 35.1 L MCV 89.1 MCH 29.9 MCHC 33.5 RDW 14.3 Plt Count 275 Discharge Plan Discharge Plan Patient Disposition: Home Discharge Med Rec/Prescriptions Prescriptions: New sulfamethoxazole-trimethoprim [Bactrim DS] 800-160 mg tablet 1 tab PO BID Qty: 20 RF: 0 Continue Multi-Vitamins with Iron 1 tab PO DAILY RF: 0 Vitamin D3 1 tab PO DAILY RF: 0 rirxddu-mogelzkubmcuy-arxlayml [Excedrin Extra Strength] 250-250-65 mg Tablet 2 tab PO Q6H PRN (Reason: Pain (Scale Score 1-3)) RF: 0 Follow up/Referrals: Brandyn Damian MD [Physician] - 3-5 Days Provider Discharge Instructions Diet: Regular Discharge Data Attending Provider: Brittani Dee Admit Date/Time: 11/04/17 21:21 Quality VTE Deep Vein Thrombosis/Pulmonary Embolism Present on Admission: No
[2017-11-07] MEDS: NICOTINE 21 MG PATCH TOP (18:32)
[2017-11-08] VITALS: O2SAT 95
[2017-11-08] MEDS: HYDROMORPHONE 0.5 MG INJ IV (00:16)
[2017-11-08] MEDS: VANCOMYCIN 1,250 MG in SODIUM CHLORIDE 0.9% 250 ML IV ×2 (00:23→08:51)
[2017-11-08] MEDS: SODIUM CHLORIDE 0.9% FLUSH 10 ML IV (00:31)
--- NOTE | 2017-11-08 00:42 | PC.NURSE ---
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 Vital signs stable. Pt asking for the medicine that starts with a D that is a shot. Pt asking also for Ativan and Vicodin at the same time, stating that the other nurse gave it to me that way. Pt agreed to wait for a few hours before getting more pain medicine and allowing the IV Dilaudid to take effect.
[2017-11-08] MEDS: HYDROCODONE/ACET 5/325 TABLET 2 TAB PO ×2 (02:28→08:42)
[2017-11-08] MEDS: HYDROMORPHONE 1 MG INJ IV ×2 (05:55→11:57)
[2017-11-08] MEDS: MULTIVIT,CALC,MINS/IRON/FOLIC 1 TABLET 1 TAB PO (08:41)
[2017-11-08] MEDS: CHOLECALCIFEROL (VITAMIN D3) 1,000 UNIT TABLET 1000 UNIT PO (08:41)
[2017-11-08] MEDS: NICOTINE 21 MG PATCH TOP (08:42)
[2017-11-08 09:05] VITALS: BP 111/78; PULSE 78; RESP 12; TEMP 36.5; O2SAT 97
--- NOTE | 2017-11-08 10:59 | PM.DS.1 ---
History of Present Illness Chief complaint: LLE ABSCESS Narrative: Patient fell about one week ago. Two days ago she developed a scratch on the anterior knee. She reports over the last two days her knee became very swollen, painful, firm, warm, and tender. She had no fever but reported chills. She was evaluated at the [facility] ED where she underwent and I/D of the knee and started Vancomycin for cellulitis. As they did not have any inpatient beds she was transferred to [facility] for admission. Discharge Providers Date of admission: 11/04/17 21:21 Consults: 11/06/17 18:06 Consult to Discharge Planning Routine Comment: Consult to Physical Therapy Evaluate & Treat Comment: Physician Instructions: Evaluate and Treat Consult to Respiratory Therapy Evaluate & Treat Comment: Physician Instructions: Evaluate and treat Discharge provider: Tarik Garcia MD Summary Hospital Course: Patient admitted with left lower leg abscess cellulitis after a fall a couple of weeks ago. Started on IV vancomycin. She had incision and drainage in the OR on 11/06/2017. The operative note indicates there was no intra-articular involvement. [facility] which was sensitive to several oral antibiotics including Bactrim. Patient has been afebrile with stable vitals. There is improvement in erythema and edema below the knee although still moderate inflammation. Her drain was removed prior to discharge after okay from Orthopedic covering provider. She is instructed to follow up with Ortho in 3 days for wound check. She is discharged on oral Bactrim. She is advised to take ibuprofen OTC 400-600 mg every 6 hr and apply ice packs for pain management. Status at Discharge Functional status at discharge: independent ambulation Time Spent with Patient Greater than 30 minutes Exam Vital Signs (past 8 hours): - 11/08/17 09:05 Temperature 97.7 F Pulse Rate 78 Respiratory Rate 12 Blood Pressure 111/78 Pulse Oximetry 97 Oxygen Delivery Method Room Air Oxygen Flow Rate 0 Objective Labs Result Diagrams: 11/07/17 05:17 11/05/17 06:00 Discharge Plan Discharge Plan Patient Disposition: Home Discharge Med Rec/Prescriptions Prescriptions: New sulfamethoxazole-trimethoprim [Bactrim DS] 800-160 mg tablet 1 tab PO BID Qty: 20 RF: 0 Continue Multi-Vitamins with Iron 1 tab PO DAILY RF: 0 Vitamin D3 1 tab PO DAILY RF: 0 kekhcow-sqnlpeqalhtis-dviaztod [Excedrin Extra Strength] 250-250-65 mg Tablet 2 tab PO Q6H PRN (Reason: Pain (Scale Score 1-3)) RF: 0 Follow up/Referrals: Brandyn Damian MD [Physician] - 3-5 Days Provider Discharge Instructions Diet: Regular Visit Report/Discharge Packet Instructions: Trimethoprim/Sulfamethoxazole (Alternative Therapy), DI for Debridement of a Wound, Infection, or Burn Visit Report Forms: Stroke Signs & Symptoms Discharge Data Attending Provider: Brittani Dee Admit Date/Time: 11/04/17 21:21 Quality VTE Deep Vein Thrombosis/Pulmonary Embolism Present on Admission: No
--- NOTE | 2017-11-08 11:02 | P.DS_ITS ---
History of Present Illness Chief complaint: LLE ABSCESS Narrative: Patient fell about one week ago. Two days ago she developed a scratch on the anterior knee. She reports over the last two days her knee became very swollen, painful, firm, warm, and tender. She had no fever but reported chills. She was evaluated at the [facility] ED where she underwent and I/D of the knee and started Vancomycin for cellulitis. As they did not have any inpatient beds she was transferred to [facility] for admission. Discharge Providers Date of admission: 11/04/17 21:21 Consults: 11/06/17 18:06 Consult to Discharge Planning Routine Comment: Consult to Physical Therapy Evaluate & Treat Comment: Physician Instructions: Evaluate and Treat Consult to Respiratory Therapy Evaluate & Treat Comment: Physician Instructions: Evaluate and treat Discharge provider: Tarik Garcia MD Summary Hospital Course: Patient admitted with left lower leg abscess cellulitis after a fall a couple of weeks ago. Started on IV vancomycin. She had incision and drainage in the OR on 11/06/2017. The operative note indicates there was no intra-articular involvement. Her aspiration wound cultures from [facility] ER grew MRSA which was sensitive to several oral antibiotics including Bactrim. Patient has been afebrile with stable vitals. There is improvement in erythema and edema below the knee although still moderate inflammation. Her drain was removed prior to discharge after okay from Orthopedic covering provider. She is instructed to follow up with Ortho in 3 days for wound check. She is discharged on oral Bactrim. She is advised to take ibuprofen OTC 400-600 mg every 6 hr and apply ice packs for pain management. Status at Discharge Functional status at discharge: independent ambulation Time Spent with Patient Greater than 30 minutes Exam Vital Signs (past 8 hours): - 11/08/17 09:05 Temperature 97.7 F Pulse Rate 78 Respiratory Rate 12 Blood Pressure 111/78 Pulse Oximetry 97 Oxygen Delivery Method Room Air Oxygen Flow Rate 0 Objective Labs Result Diagrams: 11/07/17 05:17 11/05/17 06:00 Discharge Plan Discharge Plan Patient Disposition: Home Discharge Med Rec/Prescriptions Prescriptions: New sulfamethoxazole-trimethoprim [Bactrim DS] 800-160 mg tablet 1 tab PO BID Qty: 20 RF: 0 Continue Multi-Vitamins with Iron 1 tab PO DAILY RF: 0 Vitamin D3 1 tab PO DAILY RF: 0 [id number] [Excedrin Extra Strength] 250-250-65 mg Tablet 2 tab PO Q6H PRN (Reason: Pain (Scale Score 1-3)) RF: 0 Follow up/Referrals: Brandyn Damian MD [Physician] - 3-5 Days Provider Discharge Instructions Diet: Regular Visit Report/Discharge Packet Instructions: Trimethoprim/Sulfamethoxazole (Alternative Therapy), DI for Debridement of a Wound, Infection, or Burn Visit Report Forms: Stroke Signs & Symptoms Discharge Data Attending Provider: Brittani Dee Admit Date/Time: 11/04/17 21:21 Quality VTE Deep Vein Thrombosis/Pulmonary Embolism Present on Admission: No
--- NOTE | 2017-11-08 11:19 | PC.NURSE ---
Patient in tears several times this morning, upset about pain medication management and discharge. Patient unable to received next dose of dilaudid until after 11:30 am, and became upset when told this. She is requesting to have norco or vicodin prescribed upon discharge. Dr. Garcia notified and came in to discuss discharge plans and pain management. ALEM drain removed per order for POD 2 with gauze dressing and tegaderm cover placed to drain insertion site. Dressing to knee was compromised this morning with drainage and unraveled and was redressed with sterile coversite dressing. Patient instructed to continue elevation, ensure to take antibiotics at home, and to use ice for swelling of left leg. Patient assisted into shower with shower seat, refused for me to stay with her in bathroom. Plan to medicate with available prn for pain prior to discharge. Patient is waiting for her ride home.
--- NOTE | 2017-11-08 11:45 | PT.IIE ---
Current Diagnoses Unspecified viral hepatitis C without hepatic coma (11/04/17) Nicotine dependence unspecified, with withdrawal (11/04/17) Cutaneous abscess, unspecified (11/04/17) Cellulitis of left lower limb (11/04/17) Cellulitis, unspecified (11/04/17) Surgery Performed Operation Date: 11/06/17 15:00 Actual Procedures p Incision and Drainage Wound knee(Left) - Brandyn Damian MD Surgical History (Last Reviewed 11/04/17 @ 23:03 by Brittani Dee MD) History of tubal ligation (Acute) Medical History (Last Reviewed 11/04/17 @ 23:03 by Brittani Dee MD) Breast lump in female (Acute) Eye abnormalities (Acute) Hepatic cirrhosis (Acute) Hepatitis C (Acute) History of alcohol abuse (Acute) Smoker (Acute) Physical Therapy Inpatient Evaluation/Re-Eval M1 PT/OT-IP Prior Functional Status Start: 11/07/17 15:07 Freq: Status: Active Protocol: Document 11/08/17 11:45 [facility] (Rec: 11/08/17 12:31 [facility] [id number]) Medical Review Prior Functional Status Medical History Reviewed Yes Communication WNL Mobility and Gait community ambulator without device Activities of Daily Living and IADL's indep. ADLs Social History Household Members none Living Arrangements RV Number of Floors (Floors) One Floor Number of Stairs To Enter/Railing? no steps to enter/exit Home Environment Standard Height Toilet Additional Social History Comment pt denies any AD, states she does not need one. Pt underwent I&D of the LLE due to abscess. M2 PT-IP Current Condition Start: 11/07/17 15:07 Freq: Status: Active Protocol: Document 11/08/17 11:45 [facility] (Rec: 11/08/17 12:31 [facility] [id number]) Physical Therapy Current Condition Current Condition Evaluation Date 11/08/17 Treatment Diagnosis LLE abscess, impaired mobility Precautions Other Precautions contact precautions Weight Bearing Status Weight Bearing Status Weight Bear as Tolerated M3 PT-IP Subjective Start: 11/07/17 15:07 Freq: Status: Active Protocol: Document 11/08/17 11:45 [facility] (Rec: 11/08/17 12:31 [facility] [id number]) Subjective Physical Therapy Visit Type Type Initial Evaluation Visit Start Time 11:32 Visit Stop Time 11:45 Total Visit Minutes 13 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 Physical Therapy Visit Comments Patient Comments pt reports her ride is coming soon, no concerns about d/c home Patient Goals go home Therapy Pain Assessment Pain When Pain Assessed no rating Pain Present Pain Present Pain Reported M4 PT-IP Mobility and Gait Start: 11/07/17 15:07 Freq: Status: Active Protocol: Document 11/08/17 11:45 [facility] (Rec: 11/08/17 12:31 [facility] [id number]) PT-Transfer Assessment Sit to and From Stand Sit to and from Stand Independent Equipment Transfer Assistive Device None Transfers Transfer Destination Chair Transfer Technique Stand Step Pivot Transfer Ability Level of Assist Independent Gait Assessment Gait Gait Assistance Required: Standby Assistance Distance (Feet) 25 Assistive Devices Assistive Device None Gait Deviations General Gait Pattern Antalgic Decreased Stride Length Factors Limiting Gait Function Factors Limiting Gait Function Pain Comments Gait Comments stiff LLE gait, no assistive device. Pt agreeable to room ambulation only. PT-Balance Assessment Sitting Balance and Reactions Static Sitting Balance Ability Normal Dynamic Sitting Balance Ability Normal Standing Balance and Reactions Static Standing Balance Ability Good Dynamic Standing Balance Ability Good M5 PT-IP Objective Assessments Start: 11/07/17 15:07 Freq: Status: Active Protocol: Document 11/08/17 11:45 [facility] (Rec: 11/08/17 12:31 [facility] [id number]) Orientation Orientation/Cognition Level of Alertness Alert Gross Range of Motion Lower Extremity ROM Assessment Left Impaired Impairments L knee ROM 5-15 degrees with gait, antalgic gait. Coordination Assessment Gross Coordination Gross Coordination WNL Muscle Tone Muscle Tone WNL Yes M6 PT-IP Treatment Start: 11/07/17 15:07 Freq: Status: Active Protocol: Document 11/08/17 11:45 [facility] (Rec: 11/08/17 12:31 [facility] [id number]) Physical Therapy Treatment Education Education Provided Safety M7 PT-IP Assessment and Plan Start: 11/07/17 15:07 Freq: Status: Active Protocol: Document 11/08/17 11:45 [facility] (Rec: 11/08/17 12:31 [facility] [id number]) PT Summary Assessment and Plan Potential Rehabilitation Potential Good Status of Condition at Evaluation Evolving Summary Impairments Pain ROM Gait Activity Tolerance Assessment Summary POD #2 LLE I&D for abscess. Pt agreeable to mobilize, which she performed sit<->stand independently and gait for 25 ft with SBA. Pt wanted to mobilize in room only. She took a shower with set up only . L knee ROM is decreased, likely due to pain, inactivity and recent surgery. Pt educated on importance of ROM and given handout for locations for DME in [place] (where she lives). Pt is confident about home d/c. Pt is cleared to d/c home when medically stable. Goals Bed Mobility Goal Independent Transfer Goal Independent Gait Goal Independent Gait Distance 150 Days to Meet Goals 2 Frequency of Treatment Frequency Of Treatment Once a Day Treatment Plan Physical Therapy Treatment Plan Gait Training Therapeutic Exercise Discharge Planning Neuromuscular Re-ed Other Recommendations and Next Treatment prog. gait, gentle ROM Focus Recommendations To Nursing Amount of Assist Needed Standby Assistance Discharge Recommendations PT Discharge Recommendations Home with Assistance
--- NOTE | 2017-11-08 13:00 | PC.NURSE ---
1215, IV dc'd intact. Patient dressed and ready for discharge to home, her mom is picking her up. Dressing to left knee, CDI, ambulating well (seen by PT). Patient refused wheelchair ride to exit several times, escorted out to hospital entrance. Patient instructed to call [facility] office tomorrow (thursday) to schedule a follow up appointment to be seen in 3-5 days in office. Patient instructed to call her doctor with questions or concerns, and to seek care for fevers/chills, nausea/vomiting or worsening of condition. Dressing to stay in place until follow up appointment and to remain clean and dry. Prescription for antibiotic given to patient to start tonight.
== END 2017-11-08 12:15 | disposition home or self-care (01) | DRG 580 ==
PROVIDERS: Orthopaedic Surgery Orthopaedic Surgery of the Spine; Admitting Provider Internal Medicine; Visit Provider Internal Medicine
PROC: 0KBT0ZZ Excision of Left Lower Leg Muscle, Open Approach (ICD-10-PCS; principal; 2017-11-06 15:00)
DX: L03.116 Cellulitis of left lower limb (principal); F17.213 Nicotine dependence, cigarettes, with withdrawal; B95.62 Methicillin resistant Staphylococcus aureus infection as the cause of diseases classified elsewhere; B18.2 Chronic viral hepatitis C; S81.012A Laceration without foreign body, left knee, initial encounter
CPT/HCPCS: 36415; 73723; 80053; 80202; 82565; 83605; 84520; 85025; 85027; 87040; 87070; 87075; 87077; 87147; 87186; 87205; 97162; 99406; A9579; J0330; J0696; J1170; J1650; J2060; J2274; J2405; J2704; J2765; J3370

== ENCOUNTER 2017-11-27 15:50 | Emergency (ER) | payer OTHER, MEDICAID, SELFPAY ==
[2017-11-27 15:54] VITALS: BP 109/66; PULSE 87; RESP 18; TEMP 37.1; O2SAT 97; BMI 24.7
--- NOTE | 2017-11-27 16:28 | ED.SKABFB ---
HPI - Skin/Abscess/Foreign Bdy General Chief complaint: Wound/Laceration Stated complaint: Stiches removed and infection in leg Time Seen by Provider: 11/27/17 16:10 Source: patient and old records reviewed Mode of arrival: ambulatory Limitations: no limitations History of Present Illness HPI narrative: This is a 47-year-old female who comes to the emergency department with complaint of prior incision requiring sutures and staple removal. Patient states that she had an infection, she was discharged and was supposed to follow up in 3-5 days but could not get seen by the orthopedic surgeon and [facility]. She states that the doctor there removed 1 or 2 of the rodrigo and the wound opened up a little bit and they stopped. She has not seen any other provider since and states she is worried that it might be getting infected again. She has not had fevers. She feels a little bit swollen. She is not having any pus or any sort of drainage from the wound. Her initial surgery was November 06. She does have pain in the knee itself. She was on IV antibiotics followed by oral antibiotics as an outpatient which she has finished. Per her report she had an abscess on MRI that was not inter articular but above the joint. She does not know if her tetanus is up to date. Tetanus up to date: unsure Related Data Home Medications Medication Instructions Recorded Confirmed No Known Home Medications 11/27/17 11/27/17 Previous Rx's Medication Instructions Recorded sulfamethoxazole-trimethoprim 1 tab PO BID #14 tab 11/27/17 [Bactrim DS] Allergies Allergy/AdvReac Type Severity Reaction Status Date / Time oxycodone Allergy Rash Verified 11/27/17 16:00 Review of Systems Review of Systems All systems reviewed & are unremarkable except as noted in HPI and below Constitutional Denies fever(s) and Denies weakness Musculoskeletal Reports joint swelling, Denies muscle weakness, Denies numbness and Denies tingling Integumentary/Breasts Reports as per HPI, Reports non-healing lesions and Reports erythema Neurologic Denies numbness, Denies tingling, Denies paresthesias and Denies weakness [facility] Medical History Breast lump in female (Acute) Eye abnormalities (Acute) Hepatic cirrhosis (Acute) Hepatitis C (Acute) History of alcohol abuse (Acute) Smoker (Acute) Surgical History History of incision and drainage (Acute) History of tubal ligation (Acute) Social History household members: none Smoking Status: Current every day smoker alcohol intake: current Exam Narrative Exam Narrative: GENERAL: Alert and oriented x three, well-nourished, well-appearing female in mild distress. HEENT: Head normocephalic, atraumatic, EOMI, pupils reactive, face symmetric, moist mucous membranes NECK: Supple, full range of motion CARDIOVASCULAR: Regular rate and rhythm without murmurs, rubs or gallops. RESPIRATORY: Breath sounds equal bilaterally, no wheezes rales or rhonchi. ABDOMEN: Soft, nontender. Normoactive bowel sounds all 4 quadrants. No guarding or rebound, rigidity, no mass EXTREMITIES: Decreased range of motion of the left knee, patient is able to flex and extend but not fully, patient has incision over the left knee and anterior modi that appears to have some dehiscence centrally. The incision itself appears almost fully healed although there are sutures and rodrigo present, there is maybe mild erythema along the incision site but no erythema extending into the knee, there is no ballotable effusion, and the knee itself is nontender to palpation. Patient has 2+ pulses in bilateral lower extremities., normal sensation and with no weakness in her lower extremities., no clubbing or edema. Neurovascularly intact NEUROLOGICAL: Cranial nerves II through XII grossly intact. Moving all extremities SKIN: Warm, dry, no petechiae, no rashes or lesions. Initial Vital Signs Initial Vital Signs: Vital Signs Temperature 98.8 F 11/27/17 15:54 Pulse Rate 87 11/27/17 15:54 Respiratory Rate 18 11/27/17 15:54 Blood Pressure 109/66 11/27/17 15:54 Pulse Oximetry 97 11/27/17 15:54 Course Orders Ordered: Discontinued Medications Hydrocodone Bitart/Acetaminophen ([place] 5/325) 2 tab PO NOW ONE Stop: 11/27/17 16:25 Last Admin: 11/27/17 16:42 Dose: 2 tab Lidocaine (Lidocaine Oint) 1 applic TOP NOW ONE Stop: 11/27/17 16:24 Last Admin: 11/27/17 16:41 Dose: Lidocaine/Prilocaine (Lidocaine-Prilocaine Cream) 5 gm TOP NOW ONE Stop: 11/27/17 16:42 Last Admin: 11/27/17 16:42 Dose: 5 gm Consultations Consultation #1: Dr. Kan was contacted as patient had a prior MRI followed by incision and drainage by Dr. Damian in the OR and is she was lost to follow-up and continues to have her sutures and rodrigo in place with contacted. Patient can have sutures/rodrigo out if still having pain can follow up with office. Time: 16:35 Vital Signs - 8 hr 11/27/17 15:54 11/27/17 17:32 Temperature 98.8 F Pulse Rate 87 95 H Respiratory Rate 18 17 Blood Pressure 109/66 Blood Pressure [Left Arm] 105/44 L Pulse Oximetry 97 95 MDM - Skin/Abscess/Foreign Bdy MDM Narrative Medical decision making narrative: Patient had #9 rodrigo and #11 sutures removed in emergency department. Patient has small dehiscence that is healing with scabbing centrally. Discharge Plan Departure Patient Disposition: Home Clinical Impression: Encounter for removal of sutures, Dehiscence of wound Discharge Date/Time: 11/27/17 18:17 Interventions: ED Discharge Assessment Last Done: 11/27/17 18:17 Instructions: DI for Wound Dehiscence Activity Restrictions/Additional Instructions: Call the office Thursday to set up follow up for appointment for your knee. Let the office know that Dr. Damian did surgery on your knee and you need follow-up for re-evaluation and recheck. Take antibiotics until completely gone. Wound Care: Keep wound(s) clean and dry. Wash daily with soap and water only. Do not use over the counter products (alcohol or peroxide)on the wounds unless instructed by a physician. If wound condition worsens (increased/expanding redness, developing fluid blisters, or worsening pain), either contact your doctor for an urgent re-assessment , or return to the Emergency Department. Return to the Emergency Department for any new or worsening symptoms. Return if fever greater than 100.4 Fahrenheit, increased swelling, increasing pain or worsening symptoms such as increased discharge or spreading redness. Use warm compresses 3 times daily for 20 minutes to the affected area. Prescriptions: New sulfamethoxazole-trimethoprim [Bactrim DS] 800-160 mg tablet 1 tab PO BID Qty: 14 RF: 0 No Action No Known Home Medications RF: 0 Referrals: Brandyn Damian MD [Physician] -
--- NOTE | 2017-11-27 16:35 | ED_ITS ---
HPI - Skin/Abscess/Foreign Bdy General Chief complaint: Wound/Laceration Stated complaint: Stiches removed and infection in leg Time Seen by Provider: 11/27/17 16:10 Source: patient and old records reviewed Mode of arrival: ambulatory Limitations: no limitations History of Present Illness HPI narrative: This is a 47-year-old female who comes to the emergency department with complaint of prior incision requiring sutures and staple removal. Patient states that she had an infection, she was discharged and was supposed to follow up in 3-5 days but could not get seen by the orthopedic surgeon and [facility]. She states that the doctor there removed 1 or 2 of the rodrigo and the wound opened up a little bit and they stopped. She has not seen any other provider since and states she is worried that it might be getting infected again. She has not had fevers. She feels a little bit swollen. She is not having any pus or any sort of drainage from the wound. Her initial surgery was November 06. She does have pain in the knee itself. She was on IV antibiotics followed by oral antibiotics as an outpatient which she has finished. Per her report she had an abscess on MRI that was not inter articular but above the joint. She does not know if her tetanus is up to date. Tetanus up to date: unsure Related Data Home Medications Medication Instructions Recorded Confirmed No Known Home Medications 11/27/17 11/27/17 Previous Rx's Medication Instructions Recorded sulfamethoxazole-trimethoprim 1 tab PO BID #14 tab 11/27/17 [Bactrim DS] Allergies Allergy/AdvReac Type Severity Reaction Status Date / Time oxycodone Allergy Rash Verified 11/27/17 16:00 Review of Systems Review of Systems All systems reviewed & are unremarkable except as noted in HPI and below Constitutional Denies fever(s) and Denies weakness Musculoskeletal Reports joint swelling, Denies muscle weakness, Denies numbness and Denies tingling Integumentary/Breasts Reports as per HPI, Reports non-healing lesions and Reports erythema Neurologic Denies numbness, Denies tingling, Denies paresthesias and Denies weakness [facility] Medical History Breast lump in female (Acute) Eye abnormalities (Acute) Hepatic cirrhosis (Acute) Hepatitis C (Acute) History of alcohol abuse (Acute) Smoker (Acute) Surgical History History of incision and drainage (Acute) History of tubal ligation (Acute) Social History household members: none Smoking Status: Current every day smoker alcohol intake: current Exam Narrative Exam Narrative: GENERAL: Alert and oriented x three, well-nourished, well- appearing female in mild distress. HEENT: Head normocephalic, atraumatic, EOMI, pupils reactive, face symmetric, moist mucous membranes NECK: Supple, full range of motion CARDIOVASCULAR: Regular rate and rhythm without murmurs, rubs or gallops. RESPIRATORY: Breath sounds equal bilaterally, no wheezes rales or rhonchi. ABDOMEN: Soft, nontender. Normoactive bowel sounds all 4 quadrants. No guarding or rebound, rigidity, no mass EXTREMITIES: Decreased range of motion of the left knee, patient is able to flex and extend but not fully, patient has incision over the left knee and anterior modi that appears to have some dehiscence centrally. The incision itself appears almost fully healed although there are sutures and rodrigo present, there is maybe mild erythema along the incision site but no erythema extending into the knee, there is no ballotable effusion, and the knee itself is nontender to palpation. Patient has 2+ pulses in bilateral lower extremities. , normal sensation and with no weakness in her lower extremities., no clubbing or edema. Neurovascularly intact NEUROLOGICAL: Cranial nerves II through XII grossly intact. Moving all extremities SKIN: Warm, dry, no petechiae, no rashes or lesions. Initial Vital Signs Initial Vital Signs: Vital Signs Temperature 98.8 F 11/27/17 15:54 Pulse Rate 87 11/27/17 15:54 Respiratory Rate 18 11/27/17 15:54 Blood Pressure 109/66 11/27/17 15:54 Pulse Oximetry 97 11/27/17 15:54 Course Orders Ordered: Discontinued Medications Hydrocodone Bitart/Acetaminophen ([place] 5/325) 2 tab PO NOW ONE Stop: 11/27/17 16:25 Last Admin: 11/27/17 16:42 Dose: 2 tab Lidocaine (Lidocaine Oint) 1 applic TOP NOW ONE Stop: 11/27/17 16:24 Last Admin: 11/27/17 16:41 Dose: Lidocaine/Prilocaine (Lidocaine-Prilocaine Cream) 5 gm TOP NOW ONE Stop: 11/27/17 16:42 Last Admin: 11/27/17 16:42 Dose: 5 gm Consultations Consultation #1: Dr. Kan was contacted as patient had a prior MRI followed by incision and drainage by Dr. Damian in the OR and is she was lost to follow-up and continues to have her sutures and rodrigo in place with contacted. Patient can have sutures/rodrigo out if still having pain can follow up with office. Time: 16:35 Vital Signs - 8 hr 11/27/17 15:54 11/27/17 17:32 Temperature 98.8 F Pulse Rate 87 95 H Respiratory Rate 18 17 Blood Pressure 109/66 Blood Pressure [Left Arm] 105/44 L Pulse Oximetry 97 95 MDM - Skin/Abscess/Foreign Bdy MDM Narrative Medical decision making narrative: Patient had #9 rodrigo and #11 sutures removed in emergency department. Patient has small dehiscence that is healing with scabbing centrally. Discharge Plan Departure Patient Disposition: Home Clinical Impression: Encounter for removal of sutures, Dehiscence of wound Discharge Date/Time: 11/27/17 18:17 Interventions: ED Discharge Assessment Last Done: 11/27/17 18:17 Instructions: DI for Wound Dehiscence Activity Restrictions/Additional Instructions: Call the office Thursday to set up follow up for appointment for your knee. Let the office know that Dr. Damian did surgery on your knee and you need follow-up for re-evaluation and recheck. Take antibiotics until completely gone. Wound Care: Keep wound(s) clean and dry. Wash daily with soap and water only. Do not use over the counter products (alcohol or peroxide)on the wounds unless instructed by a physician. If wound condition worsens (increased/expanding redness, developing fluid blisters, or worsening pain), either contact your doctor for an urgent re- assessment , or return to the Emergency Department. Return to the Emergency Department for any new or worsening symptoms. Return if fever greater than 100.4 Fahrenheit, increased swelling, increasing pain or worsening symptoms such as increased discharge or spreading redness. Use warm compresses 3 times daily for 20 minutes to the affected area. Prescriptions: New sulfamethoxazole-trimethoprim [Bactrim DS] 800-160 mg tablet 1 tab PO BID Qty: 14 RF: 0 No Action No Known Home Medications RF: 0 Referrals: Brandyn Damian MD [Physician] -
[2017-11-27] MEDS: LIDOCAINE/PRILOCAINE 5 GM TOP (16:42)
[2017-11-27] MEDS: HYDROCODONE/ACET 5/325 TABLET 2 TAB PO (16:42)
[2017-11-27 17:32] VITALS: BP 105/44; PULSE 95; RESP 17; O2SAT 95
--- NOTE | 2017-11-27 18:19 | PC.NURSE ---
Pt here to have sutures/rodrigo removed. Dr Lopez removed them. Bandage applied. There are no signs of infection noted.
== END 2017-11-27 18:17 | disposition home or self-care (01) ==
PROVIDERS: Emergency Provider Emergency Medicine
DX: Z48.02 Encounter for removal of sutures (principal)
CPT/HCPCS: 99283

== ENCOUNTER 2024-03-08 13:46 | Emergency (ER) | payer MEDICAID, SELFPAY ==
[2024-03-08 14:19] VITALS: BP 116/79; PULSE 73; RESP 17; TEMP 36.8; O2SAT 99; BMI 28.1
--- NOTE | 2024-03-08 14:22 | DI.RAD.S_ITS ---
PROCEDURE: XR KNEE RT 3V INDICATIONS: pain, denies injury TECHNIQUE: 3 views of the knee were acquired. COMPARISON: None. FINDINGS: Bones: No fractures or dislocations. No suspicious bony lesions. Tricompartmental joint space narrowing with associated osteophytosis. Subchondral cystic change with bony deformity about the patellofemoral and tibiofemoral compartments. Soft tissues: No joint effusion. No suspicious soft tissue calcifications. IMPRESSION: Severe tricompartmental knee osteoarthritis. Dictated by: Ward Han M.D. on 03/08/2024 at 14:44 Approved by: Ward Han M.D. on 03/08/2024 at 14:45
--- NOTE | 2024-03-08 14:54 | ED_ITS ---
HPI - Extremity Problem <Michi Alford PA-C - Last Filed: 03/08/24 16:46> General Chief complaint: Extremity Problem,Nontraumatic Stated complaint: R Knee Swelling, Popping Time Seen by Provider: 03/08/24 14:35 Source: patient Mode of arrival: Wheelchair History of Present Illness HPI Narrative: 53-year-old female presents to the ED with chronic right-sided knee pain. Patient states that the knee pain and swelling has been worsening that she hear some popping sounds. No trauma. Patient states she has had a left knee surgery, states that she has some cartilage damage on that leg and was asked to follow-up. However, she has no PCP currently to follow-up on the right knee. No numbness, tingling, weakness. No fever, chills, nausea, vomiting. Patient is able to bear weight and walk. Patient presents to the ED wearing a flexible knee brace. Related Data Home Medications Medication Instructions Recorded Confirmed No Known Home Medications 11/27/17 11/27/17 Previous Rx's Medication Instructions Recorded sulfamethoxazole 800 1 tab PO BID #14 tabs 11/27/17 mg-trimethoprim 160 mg tablet (Bactrim DS) Allergies Allergy/AdvReac Type Severity Reaction Status Date / Time No Known Drug Allergies Allergy Verified 03/08/24 14:19 Review of Systems <Michi Alford PA-C - Last Filed: 03/08/24 16:46> Constitutional Constitutional: Denies chills, Denies fatigue, Denies fever(s), Denies frequent falls, Denies lethargy and Denies weakness Eyes Eyes: Denies change in vision, Denies eye discharge, Denies irritation and Denies loss of vision ENT Ears, Nose, Mouth, and Throat: Denies change in voice, Denies dizziness, Denies neck pain, Denies sore throat and Denies throat swelling Cardiovascular Cardiovascular: Denies chest pain, Denies irregular heart rhythm, Denies lightheadedness, Denies palpitations, Denies dyspnea, Denies dyspnea on exertion and Denies orthopnea Respiratory Respiratory: Denies cough, Denies dyspnea, Denies dyspnea on exertion and Denies wheezing Gastrointestinal Gastrointestinal: Denies abdominal pain, Denies change in bowel habits, Denies diarrhea, Denies nausea and Denies vomiting Musculoskeletal Musculoskeletal: Denies neck pain and Denies numbness Comments: Right knee pain, popping Integumentary/Breasts Skin/Breast: Denies pruritus, Denies erythema, Denies rash and Denies wounds Neurologic Neurologic: Denies behavioral changes, Denies confusion, Denies dizziness, Denies frequent falls, Denies loss of vision, Denies numbness and Denies weakness Psychiatric Psychiatric: Denies anxiety, Denies behavioral changes, Denies confusion, Denies depression, Denies homicidal ideation and Denies suicidal ideation Endocrine Endocrine: Denies fatigue, Denies flushing and Denies palpitations Hematologic/Lymphatic Hematologic/Lymphatic: Denies easy bruising Allergic/Immunologic Allergic/Immunologic: Denies urticaria, Denies throat swelling and Denies wheezing Patient History <Michi Alford PA-C - Last Filed: 03/08/24 16:46> Medical History Smoker History of alcohol abuse Breast lump in female Hepatitis C Hepatic cirrhosis Eye abnormalities Surgical History History of incision and drainage History of tubal ligation Family History Other Bipolar affective disorder Cancer Depression Social History household members: none Smoking Status: Current every day smoker alcohol intake: current Smoking Status: Current every day smoker alcohol intake frequency: a few times a week Exam <Michi Alford PA-C - Last Filed: 03/08/24 16:46> Narrative Exam Narrative: Const General:?cooperative, healthy appearing and comfortable [facility] Head:?normal to inspection Ears:?hearing grossly normal bilaterally Nose:?external nose normal Face and sinus:?normal facial exam and sinuses nontender Mouth:?oral mucosae normal Throat:?posterior oropharynx normal Eyes General:?appearance normal, both eyes and all related structures Neck Neck:?normal visual inspection and no lymphadenopathy noted Resp Effort & Inspection:?normal respiratory effort Auscultation:?clear to auscultation bilaterally Cardio Rate:?regular rate Rhythm:?regular rhythm Musculoskeletal The right knee appears swollen. Not tender or warm to touch. No erythema. Neurovascularly intact. Neuro General:?patient alert, patient awake and patient oriented x3 Initial Vital Signs Initial Vital Signs: Vital Signs Temperature 98.3 F 03/08/24 14:19 Pulse Rate 73 03/08/24 14:19 Respiratory Rate 17 03/08/24 14:19 Blood Pressure 116/79 03/08/24 14:19 Pulse Oximetry 99 03/08/24 14:19 Oxygen Delivery Method Room Air 03/08/24 14:19 <Holly Wilson MD - Last Filed: 03/09/24 08:34> Initial Vital Signs Initial Vital Signs: Vital Signs Temperature 98.3 F 03/08/24 14:19 Pulse Rate 73 03/08/24 14:19 Respiratory Rate 17 03/08/24 14:19 Blood Pressure 116/79 03/08/24 14:19 Pulse Oximetry 99 03/08/24 14:19 Oxygen Delivery Method Room Air 03/08/24 14:19 Course <Michi Alford PA-C - Last Filed: 03/08/24 16:46> Orders Ordered: Discontinued Medications Ketorolac Tromethamine (Ketorolac 30 Mg/Ml Vial) 30 mg IM NOW ONE Stop: 03/08/24 15:02 Last Admin: 03/08/24 15:09 Dose: 30 mg Documented By: NAHOMI Vital Signs Vital signs: Vital Signs - 8 hr 03/08/24 14:19 Temperature 98.3 F Pulse Rate 73 Respiratory Rate 17 Blood Pressure 116/79 Pulse Oximetry 99 Oxygen Delivery Method Room Air <Holly Wilson MD - Last Filed: 03/09/24 08:34> Orders Ordered: Discontinued Medications Ketorolac Tromethamine (Ketorolac 30 Mg/Ml Vial) 30 mg IM NOW ONE Stop: 03/08/24 15:02 Last Admin: 03/08/24 15:09 Dose: 30 mg Documented By: NAHOMI Vital Signs Vital signs: Vital Signs - 8 hr 03/08/24 14:19 Temperature 98.3 F Pulse Rate 73 Respiratory Rate 17 Blood Pressure 116/79 Pulse Oximetry 99 Oxygen Delivery Method Room Air MDM - Extremity (Nontraumatic) <Michi Alford PA-C - Last Filed: 03/08/24 16:46> MDM Narrative Medical decision making narrative: 53-year-old female presents to the ED with chronic right-sided knee pain. X-ray was obtained which shows no acute fractures or dislocations. There is severe tricompartmental knee osteoarthritis. Considered gout, however presentation is most consistent with arthritic changes versus soft tissue injury. Patient does not currently have a PCP, patient was provided the card with a QR code to help her obtain a PCP. Recommend that she follow-up with a new PCP for further evaluation and treatment of the knee. In the meanwhile, patient can take Tylenol, ibuprofen, lidocaine patches, rest, heat, ice. Patient was given an injection of Toradol in the ED relief. ED return precautions standing. Medical records reviewed: Yes Discharge Plan Departure Patient Disposition: Home Clinical Impression: Acute knee pain Qualifiers: Laterality: right Qualified Code(s): M25.561 - Pain in right knee Instructions: DI for Knee Pain Activity Restrictions/Additional Instructions: You were evaluated in the ED today for right-sided knee pain. Your x-ray did not show any fractures or dislocations, however it does show severe tricompartmental arthritis. Your symptoms could be related to the arthritis versus a cartilage or meniscus injury. Please follow-up with a PCP as soon as possible for further evaluation and treatment. In the meanwhile, you may apply lidocaine patches, take Tylenol and ibuprofen for pain. Resting the knee and elevating above heart level will also be helpful. You may also apply heat/ice. You were given an injection of Toradol for pain relief today in the ED. return to the ED if you have worsening symptoms, numbness, tingling, weakness. Prescriptions: No Action No Known Home Medications sulfamethoxazole-trimethoprim [Bactrim DS] 800-160 mg tablet 1 tab PO BID Qty: 14 0RF Stand Alone Forms: Patient Portal/API/Survey ED Sign-out <oHlly Wilson MD - Last Filed: 03/09/24 08:34> Cosign ED Attending Rodrickature Attestation: I was immediately available in the department for consultation throughout this patient's visit. Holly Wilson MD
[2024-03-08] MEDS: KETOROLAC 30 MG/ML VIAL IM (15:09)
== END 2024-03-08 15:16 | disposition home or self-care (01) ==
PROVIDERS: Emergency Provider Student in an Organized Health Care Education/Training Program
DX: M25.561 Pain in right knee (principal)
CPT/HCPCS: 73562; 96372; 99283; J1885